=== PATIENT | male | born 1940 | race Caucasian/White ===

== ENCOUNTER 2019-03-10 16:14 | Observation (INO) | payer OTHER ==
[2019-03-10 17:07] LABS: Absolute Lymphocytes (CBC) 0.9 K/uL (0.7-4.9); Basophils % 0.7 % (0-1.3); Hematocrit 32.4 % (39.6-49.0); Lymphocytes % 12.3 % (15.3-44.8); MPV 8.4 fL (7.6-11.3)
[2019-03-10] MEDS ORDERED: CLOPIDOGREL 75 MG TABLET ONE (17:07)
[2019-03-10] MEDS ORDERED: HEPARIN 5000 UNIT/ML 1 ML VIAL ONE (17:07)
[2019-03-10] MEDS ORDERED: METOPROLOL TAR 50 MG TAB ONE (17:07)
[2019-03-10] MEDS ORDERED: ASPIRIN EC 81 MG TAB PO ONE (17:08)
[2019-03-10] MEDS ORDERED: HEPARIN/D5W 25,000 UNIT/500 ML BAG IV ONE (17:08)
[2019-03-10] MEDS ORDERED: FAMOTIDINE 20 MG/2 ML VIAL IV ONE (17:08)
[2019-03-10 17:09] LABS: Protime INR 1.05
--- NOTE | 2019-03-10 17:11 | RAD REPORT ---
EXAM DESCRIPTION: RAD - Chest Single View - 03/10/2019 5:02 pm CLINICAL HISTORY: CHEST PAIN Chest pain. COMPARISON: Ribs Bilateral dated 01/02/2019 FINDINGS: Portable technique limits examination quality. The lungs are grossly clear. The heart is mildly prominent size. No displaced fractures.
--- NOTE | 2019-03-10 17:19 | ER ---
Nurse's Notes [facility] Name: Shiraz Kruger Age: 78 yrs Sex: Male : 1940 Arrival Date: 03/10/2019 Time: 16:18 Bed 2 Private MD: Diagnosis: Chest pain, unspecified;Angina pectoris;Type 1 diabetes mellitus;Essential (primary) hypertension;Unspecified kidney failure-insufficency Presentation: 03/10 16:18 Presenting complaint: Patient states: about an hour ago i started having chest pain and tw2 shortness of breath i was just getting dressed, it is coming and going. Pt reports recent diagnoses of Prostate cancer and is currently on "hormone treatment" before starting radiation treatments. 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 Transition of care: patient was not received from another setting of care. Onset of symptoms was March 10, 2019. Risk Assessment: Do you want to hurt yourself or someone else? Patient reports no desire to harm self or others. Initial Sepsis Screen: Does the patient meet any 2 criteria? No. Patient's initial sepsis screen is negative. Does the patient have a suspected source of infection? No. Patient's initial sepsis screen is negative. Care prior to arrival: None. 16:18 Method Of Arrival: Wheelchair tw2 16:18 Acuity: MALIK 3 tw2 Triage Assessment: 16:19 General: Appears uncomfortable, obese, well groomed, Behavior is calm, cooperative, tw2 appropriate for age. Pain: Complains of pain in chest. Cardiovascular: Reports chest pain, shortness of breath. 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 - Coronavirus screen:: The patient has NOT traveled to [place], [place], or [place] in the past 14 days. - Social history:: Smoking status: Patient denies any tobacco usage or history of. - Family history:: not pertinent. - Ebola Screening: : Patient denies travel to an Ebola-affected area in the 21 days before illness onset. Screenin:31 Abuse screen: Denies threats or abuse. Nutritional screening: No deficits noted. aa5 Tuberculosis screening: No symptoms or risk factors identified. Fall Risk None identified. Assessment: 16:21 General: Appears uncomfortable, Behavior is calm, cooperative. Pain: Complains of pain aa5 in mid-sternal area Pain radiates to left arm Pain currently is 6 out of 10 on a pain scale. Quality of pain is described as sharp, Pain began suddenly, Is continuous. Neuro: Level of Consciousness is awake, alert, obeys commands, Oriented to person, place, time, situation. Cardiovascular: Heart tones S1 S2 present Edema is 3+ to bilateral lower extremities Rhythm is regular. Respiratory: Reports shortness of breath at rest Airway is patent Respiratory effort is even, unlabored, Respiratory pattern is regular, symmetrical, Breath sounds are clear bilaterally. GI: Abdomen is round non-distended, Bowel sounds present X 4 quads. Abd is soft and non tender X 4 quads. : No signs and/or symptoms were reported regarding the genitourinary system. EENT: No signs and/or symptoms were reported regarding the EENT system. Derm: Skin is pink, warm \\T\\ dry. Musculoskeletal: Range of motion: intact in all extremities. 17:40 Reassessment: Patient is alert, oriented x 3, equal unlabored respirations, skin aa5 warm/dry/pink. Patient denies pain at this time. Patient states feeling better. Dr. Feritas (Hospitalist) at bedside. Reports mild SOB. . 17:45 Reassessment: Awaiting room assignment, pt notified of wait time. . aa5 18:18 Reassessment: Patient appears in no apparent distress at this time. Patient and/or em family updated on plan of care and expected duration. Pain level reassessed. Patient is alert, oriented x 3, equal unlabored respirations, skin warm/dry/pink. 19:15 Reassessment: Patient appears in no apparent distress at this time. Patient and/or jb4 family updated on plan of care and expected duration. Pain level reassessed. Patient is alert, oriented x 3, equal unlabored respirations, skin warm/dry/pink. 20:30 Reassessment: Patient appears in no apparent distress at this time. Patient and/or jb4 family updated on plan of care and expected duration. Pain level reassessed. Patient is alert, oriented x 3, equal unlabored respirations, skin warm/dry/pink. 21:30 Reassessment: Patient appears in no apparent distress at this time. Patient and/or jb4 family updated on plan of care and expected duration. Pain level reassessed. Patient is alert, oriented x 3, equal unlabored respirations, skin warm/dry/pink. 22:30 Reassessment: Patient appears in no apparent distress at this time. Patient and/or jb4 family updated on plan of care and expected duration. Pain level reassessed. Patient is alert, oriented x 3, equal unlabored respirations, skin warm/dry/pink. 23:30 Reassessment: Patient appears in no apparent distress at this time. Patient and/or jb4 family updated on plan of care and expected duration. Pain level reassessed. Patient is alert, oriented x 3, equal unlabored respirations, skin warm/dry/pink. 23:50 Reassessment: Report given to Cindy KIM. ea Vital Signs: 16:19 BP 178 / 65; Pulse 81; Resp 18; Temp 98.5(TE); Pulse Ox 97% on R/A; Weight 120.2 kg tw2 (R); Height 5 ft. 10 in. (177.80 cm); Pain 10/10; 16:32 Temp 98.2(O); aa5 17:00 BP 142 / 61; Pulse 71; Resp 18; Pulse Ox 97% on R/A; em 18:16 BP 153 / 57; Pulse 60; Resp 18; Pulse Ox 98% on R/A; Pain 0/10; em 19:15 BP 153 / 97; Pulse 94; Resp 14; Pulse Ox 100% on R/A; jb4 20:30 BP 141 / 72; Pulse 51; Resp 16; Pulse Ox 99% on R/A; jb4 21:30 BP 107 / 85; Pulse 55; Resp 16; Pulse Ox 97% on R/A; jb4 22:30 BP 158 / 71; Pulse 57; Resp 16; Pulse Ox 97% on R/A; jb4 23:30 BP 134 / 60; Pulse 52; Resp 16; Pulse Ox 98% on R/A; jb4 16:19 Body Mass Index 38.02 (120.20 kg, 177.80 cm) tw2 ED Course: 16:18 Patient arrived in ED. mr 16:19 Triage completed. tw2 16:19 Arm band placed on. tw2 16:21 Patient has correct armband on for positive identification. Placed in gown. Bed in low aa5 position. Call light in reach. Side rails up X2. campus monitor on. Pulse ox on. NIBP on. 16:23 Patient maintains SpO2 saturation greater than 95% on room air. tw2 16:27 George Morales MD is Attending Physician. [facility] 16:28 Joie Martini, JUDY is Primary Nurse. aa5 16:35 Initial lab(s) drawn, by nv, sent to lab. Inserted saline lock: 20 gauge in right em antecubital area, using aseptic technique. Blood collected. 17:03 XRAY Chest (1 view) In Process Unspecified. EDLA 17:16 Mario Freitas DO is Hospitalizing Provider. [facility] 17:19 Warm blanket given. [facility] 17:30 Urine collected: clean catch specimen, clear. [facility] 19:18 Report given to JUDY Sales and JUDY George. aa5 23:53 No provider procedures requiring assistance completed. Patient admitted, IV remains in jb4 place. Administered Medications: 17:15 Drug: PlaVIX 300 mg Route: PO; bp 18:30 Follow up: Response: No adverse reaction aa5 17:15 Drug: Pepcid 20 mg Route: IVP; Site: right antecubital; bp 17:25 Follow up: Response: No adverse reaction aa5 17:15 Drug: Lopressor (metoprolol TARTRATE) 50 mg Route: PO; bp 18:30 Follow up: Response: No adverse reaction aa5 17:15 Drug: Heparin ([place]-Bolus No thrombolytic) - HEParin 60 units/kg {Co-Signature: em (Cristian Garcia RN).} Route: IVP; Site: right antecubital; 17:30 Follow up: Response: No adverse reaction aa5 17:15 Drug: Aspirin 81 mg Route: PO; bp 18:31 Follow up: Response: No adverse reaction aa5 17:16 Drug: Heparin ([place] Drip) 12 units/kg/hr - (HEParin 72801 units, D5W 500 ml) bp {Co-Signature: em (Cristian Garcia RN).} Route: IV; Rate: calculated rate; Site: right antecubital; 17:30 Follow up: Response: No adverse reaction aa5 23:53 Follow up: Response: No adverse reaction; IV Status: Infusion continued upon admission jb4 Output: 18:18 Urine: 600ml (Voided); Total: 600ml. em 23:30 Urine: 1300ml (Voided); Total: 1900ml. jb4 Outcome: 17:17 Decision to Hospitalize by Provider. [facility] 23:53 Admitted to Tele accompanied by tech, via wheelchair, room 421, with chart, Report jb4 called to Judy East 23:53 Condition: stable 23:53 Discharge instructions given to patient, Instructed on the need for admit, Demonstrated understanding of instructions. 23:54 Patient left the ED. jb4 Signatures: Dispatcher [employer] George Almaraz MD MD cha Rivera, Mary mr Munoz, Edgar, RN RN em Calderon, Audri, RN RN aa5 Wise, Tara, RN RN tw2 Gus Deras RN RN Jolanta Gan Elena, RN RN ea Peltier, Brian, JUDY RN bp Cristian Garcia RN em Corrections: (The following items were deleted from the chart) 16:20 16:18 Presenting complaint: Patient states: about an hour ago i started having chest tw2 pain and shortness of breath tw2 16:29 16:23 Social history: Smoking status: tw2 aa5 16:31 16:18 Presenting complaint: Patient states: about an hour ago i started having chest aa5 pain and shortness of breath i was just getting dressed, it is coming and going tw2 16:33 16:18 Presenting complaint: Patient states: about an hour ago i started having chest aa5 pain and shortness of breath i was just getting dressed, it is coming and going. Pt reports recent diagnoses of Prostate cancer and is currently on "hormone treatment" before starting radiation treatments. aa5 17:45 16:21 Cardiovascular: Heart tones S1 S2 present Rhythm is regular aa5 aa5
--- NOTE | 2019-03-10 17:19 | EDPHYS ---
Physician Documentation [facility] Name: Shiraz Kruger Age: 78 yrs Sex: Male : 1940 Arrival Date: 03/10/2019 Time: 16:18 Bed 2 Private MD: ED Physician George Morales HPI: 03/10 16:54 This 78 yrs old Male presents to ER via Wheelchair with complaints of Chest ritu Pain. 16:54 The patient or guardian reports chest pain that is located primarily in the substernal ritu area. Onset: today. The pain radiates to both arms. Associated signs and symptoms: Pertinent positives: dizziness, shortness of breath. The chest pain is described as a heaviness, a pressure. Duration: The patient or guardian reports multiple episodes, with no pattern. Modifying factors: The symptoms are alleviated by nothing. the symptoms are aggravated by nothing. Severity of pain: At its worst the pain was moderate in the emergency department the pain has improved markedly. 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 - Coronavirus screen:: The patient has NOT traveled to [place], [place], or [place] in the past 14 days. - Social history:: Smoking status: Patient denies any tobacco usage or history of. - Family history:: not pertinent. - Ebola Screening: : Patient denies travel to an Ebola-affected area in the 21 days before illness onset. ROS: 16:54 Constitutional: Negative for fever, chills, and weight loss, Eyes: Negative for injury, ritu pain, redness, and discharge, ENT: Negative for injury, pain, and discharge, Neck: Negative for injury, pain, and swelling, Respiratory: Negative for shortness of breath, cough, wheezing, and pleuritic chest pain, Abdomen/GI: Negative for abdominal pain, nausea, vomiting, diarrhea, and constipation, Back: Negative for injury and pain, : Negative for injury, bleeding, discharge, and swelling, MS/Extremity: Negative for injury and deformity, Skin: Negative for injury, rash, and discoloration, Neuro: Negative for headache, weakness, numbness, tingling, and seizure, Psych: Negative for depression, anxiety, suicide ideation, homicidal ideation, and hallucinations, Allergy/Immunology: Negative for hives, rash, and allergies, Endocrine: Negative for neck swelling, polydipsia, polyuria, polyphagia, and marked weight changes, Hematologic/Lymphatic: Negative for swollen nodes, abnormal bleeding, and unusual bruising. 16:54 Cardiovascular: Positive for chest pain, palpitations. 16:54 Respiratory: Positive for cough. Exam: 16:55 Constitutional: This is a well developed, well nourished patient who is awake, alert, ritu and in no acute distress. Head/Face: Normocephalic, atraumatic. Eyes: Pupils equal round and reactive to light, extra-ocular motions intact. Lids and lashes normal. Conjunctiva and sclera are non-icteric and not injected. Cornea within normal limits. Periorbital areas with no swelling, redness, or edema. ENT: Nares patent. No nasal discharge, no septal abnormalities noted. Tympanic membranes are normal and external auditory canals are clear. Oropharynx with no redness, swelling, or masses, exudates, or evidence of obstruction, uvula midline. Mucous membranes moist. Neck: Trachea midline, no thyromegaly or masses palpated, and no cervical lymphadenopathy. Supple, full range of motion without nuchal rigidity, or vertebral point tenderness. No Meningismus. Chest/axilla: Normal chest wall appearance and motion. Nontender with no deformity. No lesions are appreciated. Cardiovascular: Regular rate and rhythm with a normal S1 and S2. No gallops, murmurs, or rubs. Normal PMI, no JVD. No pulse deficits. Respiratory: Lungs have equal breath sounds bilaterally, clear to auscultation and percussion. No rales, rhonchi or wheezes noted. No increased work of breathing, no retractions or nasal flaring. Abdomen/GI: Soft, non-tender, with normal bowel sounds. No distension or tympany. No guarding or rebound. No evidence of tenderness throughout. Back: No spinal tenderness. No costovertebral tenderness. Full range of motion. Male : Normal genitalia with no discharge or lesions. Skin: Warm, dry with normal turgor. Normal color with no rashes, no lesions, and no evidence of cellulitis. MS/ Extremity: Pulses equal, no cyanosis. Neurovascular intact. Full, normal range of motion. Neuro: Awake and alert, GCS 15, oriented to person, place, time, and situation. Cranial nerves II-XII grossly intact. Motor strength 5/5 in all extremities. Sensory grossly intact. Cerebellar exam normal. Normal gait. Psych: Awake, alert, with orientation to person, place and time. Behavior, mood, and affect are within normal limits. Vital Signs: 16:19 BP 178 / 65; Pulse 81; Resp 18; Temp 98.5(TE); Pulse Ox 97% on R/A; Weight 120.2 kg tw2 (R); Height 5 ft. 10 in. (177.80 cm); Pain 10/10; 16:32 Temp 98.2(O); aa5 17:00 BP 142 / 61; Pulse 71; Resp 18; Pulse Ox 97% on R/A; em 18:16 BP 153 / 57; Pulse 60; Resp 18; Pulse Ox 98% on R/A; Pain 0/10; em 19:15 BP 153 / 97; Pulse 94; Resp 14; Pulse Ox 100% on R/A; jb4 20:30 BP 141 / 72; Pulse 51; Resp 16; Pulse Ox 99% on R/A; jb4 21:30 BP 107 / 85; Pulse 55; Resp 16; Pulse Ox 97% on R/A; jb4 22:30 BP 158 / 71; Pulse 57; Resp 16; Pulse Ox 97% on R/A; jb4 23:30 BP 134 / 60; Pulse 52; Resp 16; Pulse Ox 98% on R/A; jb4 16:19 Body Mass Index 38.02 (120.20 kg, 177.80 cm) tw2 MDM: 16:27 Patient medically screened. [facility] 16:56 Data reviewed: vital signs, nurses notes, lab test result(s), EKG, radiologic studies, ritu plain films. 03/10 16: Order name: Basic Metabolic Panel; Complete Time: 17:45 [facility] 03/10 16:27 Order name: CBC with Diff; Complete Time: 17:13 [facility] 03/10 16:27 Order name: LFT's; Complete Time: 17:45 [facility] 03/10 16:27 Order name: Magnesium; Complete Time: 17:45 [facility] 03/10 16:27 Order name: NT PRO-BNP; Complete Time: 17:45 [facility] 03/10 16:27 Order name: PT-INR; Complete Time: 17:13 [facility] 03/10 16:27 Order name: Troponin (emerg Dept Use Only); Complete Time: 17:45 [facility] 03/10 16:27 Order name: XRAY Chest (1 view); Complete Time: 17:13 [facility] 03/10 16:27 Order name: Lipase; Complete Time: 17:45 [facility] 03/10 17:36 Order name: Urine Dipstick--Ancillary (enter results) 03/10 22:13 Order name: Glucose, Ancillary Testing [facility] 03/10 22:39 Order name: US [facility] 03/10 16:27 Order name: EKG; Complete Time: 16:28 [facility] 03/10 16:27 Order name: Cardiac monitoring; Complete Time: 16:32 [facility] 03/10 16:27 Order name: EKG - Nurse/Tech; Complete Time: 16:32 [facility] 03/10 16:27 Order name: IV Saline Lock; Complete Time: 16:32 [facility] 03/10 16:27 Order name: Labs collected and sent; Complete Time: 16:32 [facility] 03/10 16:27 Order name: O2 Per Protocol; Complete Time: 16:32 [facility] 03/10 16:27 Order name: O2 Sat Monitoring; Complete Time: 16:32 [facility] 03/10 16:27 Order name: Urine Dipstick-Ancillary (obtain specimen); Complete Time: 17:30 [facility] 03/10 17:36 Order name: Urine Dipstick-Ancillary (obtain specimen); Complete Time: 17:36 ritu Administered Medications: 17:15 Drug: PlaVIX 300 mg Route: PO; bp 18:30 Follow up: Response: No adverse reaction aa5 17:15 Drug: Pepcid 20 mg Route: IVP; Site: right antecubital; bp 17:25 Follow up: Response: No adverse reaction aa5 17:15 Drug: Lopressor (metoprolol TARTRATE) 50 mg Route: PO; bp 18:30 Follow up: Response: No adverse reaction aa5 17:15 Drug: Heparin ([place]-Bolus No thrombolytic) - HEParin 60 units/kg {Co-Signature: em (Cristian Garcia RN).} Route: IVP; Site: right antecubital; 17:30 Follow up: Response: No adverse reaction aa5 17:15 Drug: Aspirin 81 mg Route: PO; bp 18:31 Follow up: Response: No adverse reaction aa5 17:16 Drug: Heparin ([place] Drip) 12 units/kg/hr - (HEParin 87577 units, D5W 500 ml) bp {Co-Signature: em (Cristian Garcia RN).} Route: IV; Rate: calculated rate; Site: right antecubital; 17:30 Follow up: Response: No adverse reaction aa5 23:53 Follow up: Response: No adverse reaction; IV Status: Infusion continued upon admission jb4 Disposition: 03/10/19 17:17 Hospitalization ordered by Mario Freitas for Inpatient Admission. Preliminary diagnosis are Chest pain, unspecified, Angina pectoris, Type 1 diabetes mellitus, Essential (primary) hypertension, Unspecified kidney failure - insufficency. - Bed requested for Telemetry/MedSurg (Inpatient). - Status is Inpatient Admission. jb4 - Condition is Fair. - Problem is new. - Symptoms have improved. UTI on Admission? No Signatures: Dispatcher [employer] George Almaraz MD MD cha Calderon, Audri, RN RN aa5 rGacy Lunsford, RN RN Catalina Oro RN RN tw2 Gus Deras RN RN jb4 Wilber Oreilly RN RN Cristian Garcia RN Corrections: (The following items were deleted from the chart) 16:29 16:23 Social history: Smoking status: tw2 [facility] 17:46 17:17 Hospitalization Ordered by Mario Freitas DO for Inpatient Admission. Preliminary ritu diagnosis is Chest pain, unspecified; Angina pectoris; Type 1 diabetes mellitus; Essential (primary) hypertension. Bed requested for Telemetry/MedSurg (Inpatient). Status is Inpatient Admission. Condition is Fair. Problem is new. Symptoms have improved. UTI on Admission? No. ritu 19:42 17:46 03/10/2019 17:17 Hospitalization Ordered by Mario Freitas DO for Inpatient cg Admission. Preliminary diagnosis is Chest pain, unspecified; Angina pectoris; Type 1 diabetes mellitus; Essential (primary) hypertension; Unspecified kidney failure - insufficency. Bed requested for Telemetry/MedSurg (Inpatient). Status is Inpatient Admission. Condition is Fair. Problem is new. Symptoms have improved. UTI on Admission? No. ritu 21:33 19:42 03/10/2019 17:17 Hospitalization Ordered by Mario Freitas DO for Inpatient cg Admission. Preliminary diagnosis is Chest pain, unspecified; Angina pectoris; Type 1 diabetes mellitus; Essential (primary) hypertension; Unspecified kidney failure - insufficency. Bed requested [facility] ER HOLD. Status is Inpatient Admission. Condition is Fair. Problem is new. Symptoms have improved. UTI on Admission? No. cg 22:31 21:33 03/10/2019 17:17 Hospitalization Ordered by Mario Freitas DO for Inpatient cg Admission. Preliminary diagnosis is Chest pain, unspecified; Angina pectoris; Type 1 diabetes mellitus; Essential (primary) hypertension; Unspecified kidney failure - insufficency. Bed requested for Telemetry/MedSurg (Inpatient). Status is Inpatient Admission. Condition is Fair. Problem is new. Symptoms have improved. UTI on Admission? No. cg 23:54 22:31 03/10/2019 17:17 Hospitalization Ordered by Mario Freitas DO for Inpatient jb4 Admission. Preliminary diagnosis is Chest pain, unspecified; Angina pectoris; Type 1 diabetes mellitus; Essential (primary) hypertension; Unspecified kidney failure - insufficency. Bed requested for Telemetry/MedSurg (Inpatient). Status is Inpatient Admission. Condition is Fair. Problem is new. Symptoms have improved. UTI on Admission? No. cg
[2019-03-10 17:31] LABS: ALT/SGPT 20 U/L (12-78); AST/SGOT 12 U/L (15-37); Albumin 3.6 g/dL (3.4-5.0); Alkaline Phosphatase 52 U/L (45-117); BUN Blood Urea Nitrogen 29 mg/dL (7-18); Bicarbonate 27 mmol/L (21-32); Bilirubin Direct 0.1 mg/dL (0-0.2); Bilirubin Total 0.3 mg/dL (0.2-1.0); Glucose Level 277 mg/dL (74-106); Lipase 165 U/L (73-393); Magnesium 2.3 mg/dL (1.8-2.4); NT PRO-BNP 113 pg/mL (<450); Potassium 4.1 mmol/L (3.5-5.1); Protein, Total 7.4 g/dL (6.4-8.2); Sodium Level 140 mmol/L (136-145); Troponin (Emerg Dept Use Only) < 0.02 ng/mL (0.0-0.045)
--- NOTE | 2019-03-10 18:01 | P.HP ---
Certification for Inpatient Patient admitted to: Observation With expected LOS: <2 Midnights Patient will require the following post-hospital care: None Practitioner: I am a practitioner with admitting privileges, knowledge of patient current condition, hospital course, and medical plan of care. Services: Services provided to patient in accordance with Admission requirements found in Title 42 Section 412.3 of the Code of Federal Regulations Patient History Date of Service: 03/10/19 Primary Care Provider: [facility]; Oncology-Dr. Santamaria; Urology-Dr. Fuentes Reason for admission: Chest pain History of Present Illness: 78-year-old male with history of diabetes mellitus type 2 insulin dependent, hypertension, gout, and prostate cancer. Patient has reported chest pain over the past several days. Chest pain has gotten worse. He reports the chest pain as being substernal. It radiates to the left arm. It is worth with exertion. He does report some shortness of breath with this. He denies any nausea, vomiting, palpitations. Patient takes medications for diabetes and hypertension. His Norvasc was recently increased to 10 mg. He was also treated for right lower extremity cellulitis. He has edema to the lower extremities. He has 3 pillow orthopnea. He came to the ER due to worsening chest pain and shortness of breath. In the ER patient was evaluated. Hemoglobin 10.7, white count 7.5. Sodium 140 , potassium 4.1, BUN of 29, creatinine 1.52 with a GFR 45. Glucose 277. Troponin unremarkable. BNP 113. No significant EKG changes noted. Patient was admitted for further evaluation. When I saw the patient ER, he appeared comfortable. He was without any significant chest pain. Family at bedside. He has reported increasing edema to the lower extremity. He is seen by oncology for prostate cancer. He recently started a new medication. Home medications list reviewed: Yes - Past Medical/Surgical History Diabetic: Yes -: Diabetes mellitus type 2, insulin-dependent -: Hypertension -: Prostate cancer -: History of tobacco abuse -: Cataract surgery Psychosocial/ Personal History: Patient lives at home. - Family History Family History: Reviewed- Non-Contributory - Social History Smoking Status: Former smoker Alcohol use: No CD- Drugs: No Caffeine use: No Place of Residence: Home Review of Systems General: As per HPI Eyes: Unremarkable ENT: Unremarkable Respiratory: Shortness of Breath, SOB with Excertion, As per HPI Cardiovascular: Chest Pain, Paroxysmal Noc. Dyspnea, Edema, As per HPI Gastrointestinal: Unremarkable Genitourinary: Unremarkable Musculoskeletal: Pedal edema, As per HPI Integumentary: Unremarkable Neurological: Unremarkable Lymphatics: Unremarkable Physical Examination - Physical Exam General: Alert, In no apparent distress, Oriented x3, Cooperative HEENT: Atraumatic, Normocephalic, Mucous membr. moist/pink Neck: Supple Respiratory: Crackles/rales (Crackles to the bases) Cardiovascular: Normal pulses, Regular rate/rhythm Gastrointestinal: Normal bowel sounds, Soft and benign, Non-distended, No tenderness, No masses, No rebound, No guarding Musculoskeletal: Other (Edema to the lower extremities bilateral.) Integumentary: No erythema, No warmth, No cyanosis Neurological: Normal speech, Normal strength at 5/5 x4 extr, Normal tone, Normal affect - Studies Laboratory Data (last 24 hrs) 03/10/19 16:35: PT 12.4, INR 1.05 03/10/19 16:35: WBC 7.5, Hgb 10.7 L, Hct 32.4 L, Plt Count 229 03/10/19 16:35: Sodium 140, Potassium 4.1, BUN 29 H, Creatinine 1.52 H, Glucose 277 H, Magnesium 2.3, Total Bilirubin 0.3, AST 12 L, ALT 20, Alkaline Phosphatase 52, Lipase 165 Assessment and Plan - Plan Impression: Chest pain, shortness of breath suspect acute on chronic diastolic CHF Diabetes mellitus type 2 insulin-dependent with hyperglycemia Hypertension Edema to the lower extremities likely from CHF Anemia of chronic disease Prostate cancer on chemotherapy Gout Suspect obstructive sleep apnea Plan: Chest pain, shortness of breath suspect acute on chronic diastolic CHF: Patient be admitted for further evaluation and treatment. Will continue to monitor telemetry and cardiac enzymes. Will start IV Lasix 40 mg twice daily. Suspect diastolic CHF. Will place on a 1500 cc per day fluid restriction. Will obtain echocardiogram to further evaluate. Cardiology consulted for further evaluation. Will discontinue hydrochlorothiazide and amlodipine at this time. Will keep the patient NPO after midnight in the event cardiology wants to further evaluate patient. Further adjustment in medication may be required. Anticipate discharge in the next 24-48 hr with clinical improvement. Diabetes mellitus type 2 insulin-dependent with hyperglycemia: Will check A1c. Will continue with basal insulin therapy. Will provide sliding scale and monitor Accu-Cheks. Hypertension: Will discontinue amlodipine and hydrochlorothiazide. Patient now on Lasix IV. Will continue with losartan. Edema to the lower extremities likely from CHF: Continue with above. Await echo. Await further recommendations from cardiology. Anemia of chronic disease: Will check iron and B12 studies per will monitor hemoglobin closely. Prostate cancer on chemotherapy: Will confirm chemotherapy medications. Will evaluate for possible side affects. Gout: Continue with allopurinol. Suspect obstructive sleep apnea: Will recommend sleep study to be done as an outpatient. Discharge Plan: Home Plan to discharge in: 24 Hours - Advance Directives Does patient have a Living Will: No Does patient have a Durable POA for Healthcare: No - Code Status/Comfort Care Code Status Assessed: Yes (Patient is full code) Time Spent Managing Pts Care (In Minutes): 55
[2019-03-10 20:15] LABS: Urine Blood TRACE (NEG); Urine Glucose 1+ (NEG); Urine Protein NEGATIVE (NEG); Urine Specific Gravity 1.015 (1.005-1.030)
[2019-03-10] MEDS ORDERED: GLUCAGON 1 MG/VIAL IM PRN (21:07)
[2019-03-10] MEDS ORDERED: ACETAMINOPHEN 500 MG TAB PO PRN (21:07)
[2019-03-10] MEDS ORDERED: ONDANSETRON 4 MG/2 ML VIAL IV PRN (21:07)
[2019-03-10] MEDS ORDERED: D50W 25 GM/50 ML SYRINGE/VIAL IV PRN (21:07)
[2019-03-10] MEDS: FUROSEMIDE 40 MG/4 ML VIAL IV SCH ×2 (21:07→22:00)
[2019-03-10] MEDS: INSULIN -REGULAR HUMAN 50 UNIT/0.5 ML ML SQ SCH (21:30)
[2019-03-10] MEDS ORDERED: FUROSEMIDE 40 MG/4 ML VIAL ONE (21:33)
[2019-03-10] MEDS ORDERED: INSULIN GLARGINE 100 UNITS/ML SQ SCH (22:00)
--- NOTE | 2019-03-10 22:36 | RAD REPORT ---
EXAM DESCRIPTION: US - Renal Ultrasound-Complete - 03/10/2019 9:35 pm CLINICAL HISTORY: evaluate for acute on chronic renal disease COMPARISON: No comparisons FINDINGS: Both kidneys are normal in size, shape and echotexture. The right kidney measures 10.1 x 5.4 x 4.5 cm. No hydronephrosis, focal mass or perinephric fluid. The left kidney measures 11.3 x 5.2 x 4.3 cm. No hydronephrosis, focal mass or perinephric fluid. The urinary bladder is incompletely distended without gross abnormality seen. The prostate gland appe ars prominent and projects into the bladder base. IMPRESSION: Unremarkable renal sonogram.
[2019-03-11] MEDS ORDERED: HEPARIN/D5W 25,000 UNIT/500 ML BAG IV SCH (01:00)
[2019-03-11 01:15] LABS: CKMB Creatine Kinase MB 1.1 ng/mL (0.3-3.6); Troponin I 0.04 ng/mL (0.0-0.045)
[2019-03-11 02:21] VITALS: BMI 38.0
[2019-03-11 04:57] LABS: Absolute Lymphocytes (CBC) 1.1 K/uL (0.7-4.9); Basophils % 0.7 % (0-1.3); Hematocrit 29.2 % (39.6-49.0); Lymphocytes % 13.2 % (15.3-44.8); MPV 8.4 fL (7.6-11.3); RBC Red Blood Cell Count 3.26 M/uL (4.33-5.43)
[2019-03-11 05:42] LABS: CKMB Creatine Kinase MB 1.5 ng/mL (0.3-3.6); Ferritin 152.3 ng/mL (26-388); Magnesium 2.2 mg/dL (1.8-2.4); Potassium 4.3 mmol/L (3.5-5.1); Thyroid Stimulating Hormone 1.41 uIU/mL (0.360-3.740); Troponin I 0.04 ng/mL (0.0-0.045)
[2019-03-11] MEDS ORDERED: PANTOPRAZOLE 40MG TABLET PO SCH ×2 (06:30→13:00)
[2019-03-11] MEDS: INSULIN -REGULAR HUMAN 50 UNIT/0.5 ML ML SQ SCH ×2 (07:30→11:30)
[2019-03-11] MEDS ORDERED: PNEUMOCOCCAL VACCINE 0.5 ML IMVAC ONE (08:00)
[2019-03-11] MEDS ORDERED: BICALUTAMIDE PO SCH (09:00)
[2019-03-11] MEDS ORDERED: allopurinoL 100 MG TAB PO SCH (09:00)
[2019-03-11] MEDS ORDERED: CETIRIZINE HCL 5 MG TABLET PO SCH (09:00)
[2019-03-11] MEDS ORDERED: AMOXICILLIN PO SCH (09:00)
[2019-03-11] MEDS ORDERED: ENOXAPARIN 40 MG/0.4 ML SQ SCH (09:00)
[2019-03-11] MEDS ORDERED: LOSARTAN POTASSIUM 50 MG TABLET PO SCH (09:00)
[2019-03-11] MEDS ORDERED: ASPIRIN EC 81 MG TAB PO SCH (09:00)
[2019-03-11] MEDS ORDERED: FERROUS SULFATE 325 MG TAB PO SCH (09:00)
--- NOTE | 2019-03-11 09:23 | RAD REPORT ---
EXAM DESCRIPTION: RAD - Chest Pa And Lat (2 Views) - 03/11/2019 5:37 am CLINICAL HISTORY: Follow up possible CHF Chest pain. COMPARISON: Chest Single View dated 03/10/2019 FINDINGS: Little overall change is seen in the appearance of the chest since prior study. Mild inter stitial pulmonary edema suspected. The heart is mildly enlarged in size. No displaced fractures. IMPRESSION: Stable chest since 03/10/2019.
[2019-03-11] MEDS: FUROSEMIDE 40 MG/4 ML VIAL IV SCH (09:27)
[2019-03-11 12:34] VITALS: BP 134/61; TEMP 97.2
--- NOTE | 2019-03-11 12:54 | ECHO ---
HEIGHT: 5 ft 10 in WEIGHT: 264 lb 15.93 oz DATE OF STUDY: 03/11/[address]: Mario Freitas DO 2-DIMENSIONAL: YES M.MODE: YES DOPPLER: YES COLOR FLOW: YES TDS: YES PORTABLE: NO DEFINITY: NO BUBBLE STUDY: NO DIAGNOSIS: CHEST PAIN, SHORTNESS OF BREATH, SUSPECT CONGESTIVE HEART FAILURE CARDIAC HISTORY: CATHERIZATION: NO SURGERY: NO PROSTHETIC VALVE: NO PACEMAKER: NO MEASUREMENTS (cm) DIASTOLIC (NORMALS) SYSTOLIC (NORMALS) IVSd 0.9 (0.6-1.2) LA Diam 4.3 (1.9-4.0) LVEF 36% LVIDd 4.6 (3.5-5.7) LVIDs 3.8 (2.0-3.5) %FS 17% LVPWd 1.0 (0.6-1.2) Ao Diam 2.8 (2.0-3.7) 2 DIMENSIONAL ASSESSMENT: RIGHT ATRIUM: NORMAL LEFT ATRIUM: NORMAL RIGHT VENTRICLE: NORMAL LEFT VENTRICLE: NORMAL TRICUSPID VALVE: NORMAL MITRAL VALVE: MITRAL ANNULAR CALCIFICATION PULMONIC VALVE: NORMAL AORTIC VALVE: SCLEROSIS PERICARDIAL EFFUSION: NONE AORTIC ROOT: NORMAL LEFT VENTRICULAR WALL MOTION: NORMAL DOPPLER/COLOR FLOW: NORMAL COMMENTS: LEFT ATRIAL ENLARGEMENT. NORMAL LEFT VENTRICULAR SIZE. DECREASED LEFT VENTRICULAR COMPLIANCE. MITRAL ANNULAR CALCIFICATION. AORTIC SCLEROSIS WITH NO STENOSIS. TECHNOLOGIST: Emi WARNER
--- NOTE | 2019-03-11 13:29 | P.DS ---
Admission Date: 03/10/19 Discharge Date: 03/11/19 Primary Care Provider: [facility] Physician; Oncology-Dr. Santamaria; Urology-Dr. Fuentes Disposition: ROUTINE DISCHARGE Discharge Condition: GOOD Reason for Admission: Chest pain Consultations: Cardiology-Dr. Carmichael Procedures: CXR: COMPARISON: Chest Single View dated 03/10/2019 FINDINGS: Little overall change is seen in the appearance of the chest since prior study. Mild interstitial pulmonary edema suspected. The heart is mildly enlarged in size. No displaced fractures. IMPRESSION: Stable chest since 03/10/2019. ECHO: Ejection fraction 36% LEFT VENTRICULAR WALL MOTION: NORMAL DOPPLER/COLOR FLOW: NORMAL COMMENTS: LEFT ATRIAL ENLARGEMENT. NORMAL LEFT VENTRICULAR SIZE. DECREASED LEFT VENTRICULAR COMPLIANCE. MITRAL ANNULAR CALCIFICATION. AORTIC SCLEROSIS WITH NO STENOSIS. Medical Problem List: Chest pain, shortness of breath likely related to acute on chronic systolic CHF with ejection fraction of 36% Diabetes mellitus type 2 insulin-dependent with hyperglycemia Hypertension Edema to the lower extremities likely from CHF Anemia of chronic disease Prostate cancer on chemotherapy Gout Suspect obstructive sleep apnea Brief History of Present Illness: 78-year-old male with history of diabetes mellitus type 2 insulin dependent, hypertension, gout, and prostate cancer. Patient has reported chest pain over the past several days. Chest pain has gotten worse. He reports the chest pain as being substernal. It radiates to the left arm. It is worth with exertion. He does report some shortness of breath with this. He denies any nausea, vomiting, palpitations. Patient takes medications for diabetes and hypertension. His Norvasc was recently increased to 10 mg. He was also treated for right lower extremity cellulitis. He has edema to the lower extremities. He has 3 pillow orthopnea. He came to the ER due to worsening chest pain and shortness of breath. In the ER patient was evaluated. Hemoglobin 10.7, white count 7.5. Sodium 140 , potassium 4.1, BUN of 29, creatinine 1.52 with a GFR 45. Glucose 277. Troponin unremarkable. BNP 113. No significant EKG changes noted. Patient was admitted for further evaluation. When I saw the patient ER, he appeared comfortable. He was without any significant chest pain. Family at bedside. He has reported increasing edema to the lower extremity. He is seen by oncology for prostate cancer. He recently started a new medication. Hospital Course: Patient presented with chest pain and shortness of breath. Patient also had edema to the lower extremities. Patient was admitted for further evaluation. Cardiac enzymes unremarkable. Patient seen and evaluated by Cardiology. Echocardiogram shows ejection fraction of 36%. Shortness of breath related to acute on chronic systolic CHF. Medications have been adjusted. Hydrochlorothiazide and amlodipine have been discontinued. At discharge he will continue with a 1500 cc per day fluid restriction and low-salt diet. He will monitor his weight daily. If his weight increases by more than 5 lb then he is to contact his PCP for further recommendation. At discharge he will continue with Lasix 40 mg daily. Recommend follow up with cardiology in 1-2 weeks to follow up this hospitalization. Patient will require outpatient cardiac stress test as an outpatient. This will be done with the help of Cardiology. Education on CHF provided. Recommend to recheck lab-BMP in 1-2 weeks to monitor his progress. Patient with underlying hypertension. Medications have been adjusted due to CHF. Patient will no longer take amlodipine and hydrochlorothiazide. Patient will continue with losartan 50 mg daily. Recommend to maintain his blood pressures less 150/80. Further adjustment may be required. If blood pressure remains elevated losartan may need to be increased to twice daily. Recommend follow up with cardiology in his PCP to further address. Patient with diabetes mellitus type 2. A1c 7.4. At discharge he will continue with his insulin regimen of Levemir 50 units subcu twice daily. Patient also takes short-acting insulin. Recommend to maintain blood sugars less 140 fasting and less than 200 after meals. Further adjustment can be done by his PCP. Patient with anemia of chronic disease. Patient may continue with iron 325 mg daily. Patient with prostate cancer. Patient will continue with his chemotherapy medications. Recommend follow up with urology and oncology. Patient may have underlying obstructive sleep apnea. Will recommend sleep study to be done as an outpatient. This can be done with the help of his PCP. Patient with underlying gout. Patient may continue with allopurinol 100 mg daily. Patient may continue with his antibiotic regimen for cellulitis to the lower extremities. This has improved. Recommend follow up with his PCP to further address. Vital Signs/Physical Exam: Temp Pulse Resp BP Pulse Ox 97.2 F 56 20 134/61 95 03/11/19 12:00 03/11/19 12:00 03/11/19 12:00 03/11/19 12:00 03/11/19 12:00 General: Alert, In no apparent distress, Oriented x3, Cooperative HEENT: Atraumatic Neck: Supple Respiratory: Clear to auscultation bilaterally, Normal air movement Cardiovascular: Normal pulses, Regular rate/rhythm Gastrointestinal: Normal bowel sounds, Soft and benign, Non-distended, No tenderness, No masses, No rebound, No guarding Musculoskeletal: No tenderness, No warmth Integumentary: Tenderness/swelling (Swelling to the lower extremities improved.) Neurological: Normal speech, Normal strength at 5/5 x4 extr, Normal tone, Normal affect Laboratory Data at Discharge: WBC 8.6 K/uL (4.3-10.9) D 03/11/19 04:33 Hgb 9.8 g/dL (13.6-17.9) L 03/11/19 04:33 Hct 29.2 % (39.6-49.0) L 03/11/19 04:33 Plt Count 223 K/uL (152-406) 03/11/19 04:33 PT 12.4 SECONDS (9.5-12.5) 03/10/19 16:35 INR 1.05 03/10/19 16:35 APTT 49.6 SECONDS (24.3-36.9) H 03/11/19 00:33 Sodium 145 mmol/L (136-145) 03/11/19 04:33 Potassium 4.3 mmol/L (3.5-5.1) 03/11/19 04:33 BUN 30 mg/dL (7-18) H 03/11/19 04:33 Creatinine 1.58 mg/dL (0.55-1.3) H 03/11/19 04:33 Glucose 147 mg/dL (74-106) H 03/11/19 04:33 Magnesium 2.2 mg/dL (1.8-2.4) 03/11/19 04:33 Total Bilirubin 0.3 mg/dL (0.2-1.0) 03/10/19 16:35 AST 12 U/L (15-37) L 03/10/19 16:35 ALT 20 U/L (12-78) 03/10/19 16:35 Alkaline Phosphatase 52 U/L (45-117) 03/10/19 16:35 Troponin I 0.04 ng/mL (0.0-0.045) 03/11/19 04:33 Triglycerides 156 mg/dL (<150) H 03/11/19 04:33 Cholesterol 128 mg/dL (<200) 03/11/19 04:33 HDL Cholesterol 38 mg/dL (40-60) L 03/11/19 04:33 Cholesterol/HDL Ratio 3.37 03/11/19 04:33 Lipase 165 U/L (73-393) 03/10/19 16:35 Home Medications: Allopurinol 1 tab PO DAILY 03/11/19 Amoxicillin 1 tab PO TID 03/11/19 Aspirin Chewable [Aspirin Chewable*] 1 tab PO DAILY 03/11/19 Bicalutamide [Casodex] 1 tab PO DAILY 03/11/19 Cetirizine HCl 1 tab PO DAILY 03/11/19 Curcumin 1 tab PO DAILY 03/11/19 Ferrous Sulfate [Iron] 1 tab PO DAILY 03/11/19 Flaxseed/Omega3,6,9/Fatty Acid [Flax Seed Oil 1,300 mg Softgel] 1 tab PO DAILY 03/11/19 Furosemide [Lasix] 40 mg PO DAILY #30 tab 03/11/19 Insulin Aspart [Insulin Aspart Penfill] 20 units SQ TID 03/11/19 Insulin Detemir [Levemir] 50 units SQ BID 03/11/19 Losartan Potassium [Cozaar*] 1 tab PO DAILY 03/11/19 Sennosides/Docusate Sodium [Stool Softener-Laxative Tablet] 1 tab PO DAILY 03/11 New Medications: Furosemide [Lasix] 40 mg PO DAILY #30 tab Patient Discharge Instructions: 1. Recommend follow up with his PCP in 1-2 weeks to follow up this hospitalization. 2. Patient presented with chest pain and shortness of breath. Patient also had edema to the lower extremities. Patient was admitted for further evaluation. Cardiac enzymes unremarkable. Patient seen and evaluated by Cardiology. Echocardiogram shows ejection fraction of 36%. Shortness of breath related to acute on chronic systolic CHF. Medications have been adjusted. Hydrochlorothiazide and amlodipine have been discontinued. At discharge he will continue with a 1500 cc per day fluid restriction and low-salt diet. He will monitor his weight daily. If his weight increases by more than 5 lb then he is to contact his PCP for further recommendation. At discharge he will continue with Lasix 40 mg daily. Recommend follow up with cardiology in 1-2 weeks to follow up this hospitalization. Patient will require outpatient cardiac stress test as an outpatient. This will be done with the help of Cardiology. Education on CHF provided. Recommend to recheck lab-BMP in 1-2 weeks to monitor his progress. 3. Patient with underlying hypertension. Medications have been adjusted due to CHF. Patient will no longer take amlodipine and hydrochlorothiazide. Patient will continue with losartan 50 mg daily. Recommend to maintain his blood pressures less 150/80. Further adjustment may be required. If blood pressure remains elevated losartan may need to be increased to twice daily. Recommend follow up with cardiology in his PCP to further address. 4. Patient with diabetes mellitus type 2. A1c 7.4. At discharge he will continue with his insulin regimen of Levemir 50 units subcu twice daily. Patient also takes short-acting insulin. Recommend to maintain blood sugars less 140 fasting and less than 200 after meals. Further adjustment can be done by his PCP. 5. Patient with anemia of chronic disease. Patient may continue with iron 325 mg daily. 6. Patient with prostate cancer. Patient will continue with his chemotherapy medications. Recommend follow up with urology and oncology. 7. Patient may have underlying obstructive sleep apnea. Will recommend sleep study to be done as an outpatient. This can be done with the help of his PCP. 8. Patient with underlying gout. Patient may continue with allopurinol 100 mg daily. 9. Patient may continue with his antibiotic regimen for cellulitis to the lower extremities. This has improved. Recommend follow up with his PCP to further address. Diet: ADA Activity: Fall precautions Time spent managing pt's care (in minutes): 55
[2019-03-11 13:38] VITALS: O2SAT 93
--- NOTE | 2019-03-11 15:57 | EKG ---
Test Date: 2019-03-10 Test Time: 16:27:35 Instrument Inspector: DAVID MEASUREMENT RESULTS: Intervals: Rate: 74 MS: 216 QRSD: 100 QT: 388 QTc: 430 [place]: P: 52 MS: 216 QRS: 16 T: 62 INTERPRETIVE STATEMENTS: Sinus rhythm with 1st degree AV block Low voltage QRS Nonspecific ST abnormality Abnormal ECG Compared to ECG 11/12/1999 05:05:00 First degree AV block now present Low QRS voltage now present ST (T wave) deviation now present Electronically Signed On 03-11-19 15:52:28 [employer] by Hu Carmichael
--- NOTE | 2019-03-11 20:19 | CON ---
Date of Consultation: 03/11/2019 Reason For Consultation: Chest pain and shortness of breath. History Of Present Illness: Mr. Kruger is 78, has a history of hypertension, diabetes, asthma, and p rostate cancer. He is still undergoing therapy. He came in with shortness of breath and chest pain that has been going on for few days. His chest pain is stabbing, sharp, mid epigastric. He will occ asionally have some arm pain with it, lasts usually 5 to 10 minutes. It is nonexertional. Denied an y PND, orthopnea, pedal edema, palpitation, or syncope. He feels that he has been having more dyspne a on exertion lately. Allergies: FLOMAX. Review of Systems: Negative. Social History: Negative. Family History: Negative. Medications: At home include insulin, Norvasc, allopurinol, aspirin, hydrochlorothiazide, and losart an. Physical Examination: General: He weighed 214 pounds. HEENT: Negative. Neck: Supple. No bruit. Vital Signs: Stable, afebrile. Sinus rhythm. Chest: Revealed a few rales at the right base. The left was negative. Cardiac: Revealed a regular rhythm and rate with an S4 and gallop. No murmurs or rubs. Abdomen: Benign. Extremities: Revealed no clubbing, cyanosis, or edema. Diagnostic Data: His creatinine is 1.56, hemoglobin 9.8. EKG was unremarkable. Echocardiogram show ed normal ejection fraction with decreased left ventricular compliance. Impression And Plan: 1.Acute diastolic congestive heart failure. 2.Hypertension. 3.Diabetes. 4.Asthma. 5.Prostate cancer. 6.Gout. 7.Anemia. 8.Renal insufficiency. Patient has improved dramatically on IV Lasix. I would definitely consider sending him home today. I think the hydrochlorothiazide should be replaced with p.o. Lasix. I would continue the Norvasc or even consider using a low-dose beta-magdalena instead. He is already on losartan, which is a good michelle men. We need to watch his kidney function and anemia. I am comfortable with him going home with the above-mentioned changes. Case was discussed with Dr. Freitas. I will make arrangements for him to h ave an outpatient stress test and see me in the office in the near future. NB/MODL Voice ID: [id number] Report ID: [id number]
[2019-03-12] MEDS ORDERED: ENOXAPARIN 40 MG/0.4 ML SQ SCH (09:00)
== END 2019-03-11 14:25 | disposition home or self-care (01) ==
LOC: ER 16:14 → ERHOLD 17:46 → 4TH 23:07
PROVIDERS: ADMIT Family Medicine; ATTEND Family Medicine
DX: R07.9 Chest pain, unspecified (principal); I11.0 Hypertensive heart disease with heart failure; I50.23 Acute on chronic systolic (congestive) heart failure; C61 Malignant neoplasm of prostate; M10.9 Gout, unspecified; E11.65 Type 2 diabetes mellitus with hyperglycemia
CPT/HCPCS: 96365; 93005; 93306; 85025 ×2; 80048 ×2; 36415; 83735 ×2; 82550 ×2; 85610; 80061; 82947 ×4; 80076; 85730; 84443; 81003; 83036; 84484 ×3; 82553 ×2; 84439; 82728; 82607; 83690; 83540; 83880; 84466; 71045; 71046; 76770; 96375; 99285; 96366; J1940 ×2; J1644; J1815; G0378 ×3

== ENCOUNTER 2024-01-26 19:18 | Emergency (ER) | payer OTHER ==
[2024-01-26 20:17] LABS: Specific Gravity 1.021 (1.005-1.030); Urine Clarity Extremely Turbid (Clear); Urine Color Yellow (Yellow)
[2024-01-26 20:18] LABS: Urine Bilirubin NEGATIVE (Negative); Urine Blood 2+ (Negative); Urine Glucose Negative (Negative); Urine Ketones Negative (Negative); Urine pH 5.5 (5.0-7.0)
[2024-01-26 20:19] LABS: Urine Nitrite Negative (Negative); Urine Protein 2+ (Negative); Urine Urobilinogen Normal mg/dL (0.2-1.0)
[2024-01-26 20:20] LABS: Sqamous Epithelial <5 /HPF (None Seen); Urine Ascorbic Acid Negative (Negative); Urine Bacteria None Seen /HPF (<20); Urine Culture Reflex Order REFLEXED; Urine Microscopic Reflex YN ORDER UMIC; Urine RBC >50 /HPF (None Seen); Urine WBC >50 /HPF (<5)
[2024-01-26 20:21] LABS: Urine Crystals Unidentified Few /HPF (None Seen); Urine WBC Clump Few /HPF (None Seen); Urine Yeast (Budding) Few /HPF (None Seen)
--- NOTE | 2024-01-26 20:56 | RAD REPORT ---
EXAMINATION: CT ABDOMEN AND PELVIS WITHOUT CONTRAST CLINICAL INDICATION: FLANK PAIN TECHNIQUE: CT abdomen and pelvis was performed, without IV contrast, as per department protocol. Axia l, sagittal and coronal reconstructions were obtained. One or more of the following dose reduction techniques were used: Automated exposure control, adjustment of the mA and kV according to the patien t size, and iterative reconstruction. Unless otherwise specified, incidental findings do not require dedicated imaging follow-up. COMPARISON: No prior exam. FINDINGS: The lack of intravenous contrast limits the sensitivity of this exam for evaluation of solid visceral organs, vascular structures, and retroperitoneum. LOWER CHEST: The visualized lung bases are clear. Trace left pleural fluid. LIVER:Normal in size and contour. No focal lesion. Cholelithiasis. SPLEEN: Normal size. No focal lesion. PANCREAS: No mass, ductal dilation, or shaina-pancreatic fluid. ADRENALS: Normal; no mass. KIDNEYS AND URETERS: Punctate calculus superior pole left kidney. No additional stone or hydronephros is. URINARY BLADDER: Mildly thickened with slight reticulation of the adjacent fat. GASTROINTESTINAL TRACT: No evidence of bowel obstruction, significant free fluid, free air or abscess . There is mild diverticulosis coli of the sigmoid colon without diverticulitis. APPENDIX: Normal appendix. LYMPH NODES: No lymphadenopathy. MUSCULOSKELETAL: Mild multilevel spinal degenerative changes. ADDITIONAL FINDINGS: Small moderate fat-containing ventral hernia. IMPRESSION: Cholelithiasis. Urinary bladder wall thickening may indicate cystitis. Moderate fat-containing umbilical hernia. Punctate left renal calculus without hydronephrosis.
[2024-01-26 21:01] LABS: Absolute Eosinophils 0.2 K/uL (0-0.5); Absolute Lymphocytes (CBC) 0.8 K/uL (0.7-4.9); Absolute Monocytes 0.5 K/uL (0.1-1.3); Absolute Neutrophil 4.8 K/uL (1.8-8.0); Basophils % 0.8 % (0-1.3); Eosinophils % 2.4 % (0-4.4); Hematocrit 29.2 % (39.6-49.0); Hemoglobin 9.5 g/dL (13.6-17.9); Lymphocytes % 12.3 % (15.3-44.8); MCH 29.7 pg (27.0-35.0); MCHC 32.6 g/dL (32.0-36.0); MCV 91.1 fL (80-100); MPV 8.3 fL (7.6-11.3); Monocytes % 8.3 % (3.3-12.3); Neutrophils % 76.2 % (41.7-73.7); Platelets 212 thou/uL (152-406); Red Cell Distribution Width 16.3 % (12.1-15.2)
[2024-01-26 21:16] LABS: Albumin 3.4 g/dL (3.4-5.0); Albumin/Globulin Ratio 0.9 (1.1-1.8); Anion Gap 8.2 mEq/L (5.0-15.0); Bilirubin Total 0.3 mg/dL (0.2-1.0); Globulin 3.7 g/dL (2.3-3.5); Potassium 4.2 mEq/L (3.5-5.1); Protein, Total 7.1 g/dL (6.4-8.2)
[2024-01-26] MEDS ORDERED: CEFTRIAXONE 1000 MG/VIAL ONE (21:39)
[2024-01-26] MEDS ORDERED: NA CHLORIDE 0.9% 500 ML ONE (21:40)
[2024-01-26] MEDS ORDERED: CIPROFLOXACIN HCL 500 MG TAB ONE (23:34)
[2024-01-26] MEDS ORDERED: PHENAZOPYRIDINE 100MG TAB PO ONE (23:35)
[2024-01-26] MEDS ORDERED: CEFDINIR 300 MG CAP PO ONE (23:40)
--- NOTE | 2024-01-26 23:41 | EDPHYS ---
Physician Documentation [facility] Name: Shiraz Kruger Age: 83 yrs Sex: Male : 1940 Arrival Date: 01/26/2024 Time: 19:18 Bed 7 Private MD: ED Physician George Morales HPI: 01/25 23:34 This 83 yrs old Male presents to ER via Wheelchair with complaints of Urinary ritu Problem. 23:34 The patient presents with urinary symptoms, dysuria, urinary frequency. Onset: The ritu symptoms/episode began/occurred 2 day(s) ago. Modifying factors: The symptoms are alleviated by nothing, the symptoms are aggravated by urinating. Associated signs and symptoms: The patient has no apparent associated signs or symptoms. Severity of symptoms: At their worst the symptoms were mild, in the emergency department the symptoms are unchanged. The patient has experienced similar episodes in the past, several times. Historical: - Allergies: 19:36 TAMSULOSIN; cm10 - PMHx: 19:31 Asthma; Diabetes - IDDM; Hypertension; Prostate Cancer; Hypercholesterolemia; cm10 - PSHx: 19:31 Coronary artery bypass graft; cm10 - Immunization history:: Adult Immunizations up to date. - Infectious Disease History:: Denies. - Social history:: Smoking status: Patient/guardian denies using tobacco, the patient reports quitting approximately 35 years ago. ROS: 23:35 Constitutional: Negative for fever, chills, and weight loss, Eyes: Negative for injury, ritu pain, redness, and discharge, ENT: Negative for injury, pain, and discharge, Neck: Negative for injury, pain, and swelling, Cardiovascular: Negative for chest pain, palpitations, and edema, Respiratory: Negative for shortness of breath, cough, wheezing, and pleuritic chest pain, Abdomen/GI: Negative for abdominal pain, nausea, vomiting, diarrhea, and constipation, Back: Negative for injury and pain, MS/Extremity: Negative for injury and deformity, Skin: Negative for injury, rash, and discoloration, Neuro: Negative for headache, weakness, numbness, tingling, and seizure, Psych: Negative for depression, anxiety, suicide ideation, homicidal ideation, and hallucinations, Allergy/Immunology: Negative for hives, rash, and allergies, Endocrine: Negative for neck swelling, polydipsia, polyuria, polyphagia, and marked weight changes, Hematologic/Lymphatic: Negative for swollen nodes, abnormal bleeding, and unusual bruising, 23:35 : Positive for urinary symptoms, urinary frequency, small amounts, hematuria, burning with urination, Exam: 23:35 Constitutional: This is a well developed, well nourished patient who is awake, alert, ritu and in no acute distress. Head/Face: Normocephalic, atraumatic. Eyes: Pupils equal round and reactive to light, extra-ocular motions intact. Lids and lashes normal. Conjunctiva and sclera are non-icteric and not injected. Cornea within normal limits. Periorbital areas with no swelling, redness, or edema. ENT: Nares patent. No nasal discharge, no septal abnormalities noted. Tympanic membranes are normal and external auditory canals are clear. Oropharynx with no redness, swelling, or masses, exudates, or evidence of obstruction, uvula midline. Mucous membranes moist. Neck: Trachea midline, no thyromegaly or masses palpated, and no cervical lymphadenopathy. Supple, full range of motion without nuchal rigidity, or vertebral point tenderness. No Meningismus. Chest/axilla: Normal chest wall appearance and motion. Nontender with no deformity. No lesions are appreciated. Cardiovascular: Regular rate and rhythm with a normal S1 and S2. No gallops, murmurs, or rubs. Normal PMI, no JVD. No pulse deficits. Respiratory: Lungs have equal breath sounds bilaterally, clear to auscultation and percussion. No rales, rhonchi or wheezes noted. No increased work of breathing, no retractions or nasal flaring. Abdomen/GI: Soft, non-tender, with normal bowel sounds. No distension or tympany. No guarding or rebound. No evidence of tenderness throughout. Back: No spinal tenderness. No costovertebral tenderness. Full range of motion. Male : Normal genitalia with no discharge or lesions. Skin: Warm, dry with normal turgor. Normal color with no rashes, no lesions, and no evidence of cellulitis. MS/ Extremity: Pulses equal, no cyanosis. Neurovascular intact. Full, normal range of motion., bilateral aka Neuro: Awake and alert, GCS 15, oriented to person, place, time, and situation. Cranial nerves II-XII grossly intact. Motor strength 5/5 in all extremities. Sensory grossly intact. Cerebellar exam normal. Normal gait. Psych: Awake, alert, with orientation to person, place and time. Behavior, mood, and affect are within normal limits. 23:35 Abdomen/GI: Rectal exam: is unremarkable, Prostate: normal, rectal tone normal, swelling, is not appreciated, tenderness, is not appreciated, fecal impaction, is not appreciated, NO BLOOD, NO MELENA, Vital Signs: 19:31 BP 141 / 54; Pulse 58; Resp 16; Temp 98(TE); Pulse Ox 98% on R/A; Weight 99.79 kg; cm10 Height 5 ft. 10 in. ; Pain 0/10; 22:15 BP 140 / 53; Pulse 62; Resp 17 S; Pulse Ox 97% on R/A; ha1 23:51 BP 134 / 99; Pulse 61; Resp 18; Pulse Ox 99% ; cp4 19:31 Body Mass Index 31.57 (99.79 kg, 177.8 cm) cm10 19:31 Pain Scale: Adult cm10 MDM: 19:37 Medical Screening Exam initiated [facility] 23:37 Differential diagnosis: UTI, urinary retention, prostatitis, urethritis. Data reviewed: [facility] vital signs, nurses notes, lab test result(s), radiologic studies, CT scan. Consideration of Admission/Observation Escalation of care including admission/observation considered. I considered the following discharge prescriptions or medication management in the emergency department Medications were administered in the Emergency Department. See MAR. Independent interpretation of the following test(s) in the Emergency Department CT Scan: My interpretation is CT STONE. Test considered but Not performed: Ultrasound NO ABD USG. Historians other than the Patient: Family Member: SON , WELL INFORMED. Care significantly affected by the following chronic conditions: Diabetes, Hypertension, Obesity, ASTHMA,HIGH CHLESTEROL. 01/25 19:39 Order name: CBC with Diff; Complete Time: 23:20 [facility] 01/25 19:39 Order name: Comprehensive Metabolic Panel; Complete Time: 23:20 [facility] 01/25 19:39 Order name: Urinalysis w/ reflexes; Complete Time: 23:20 [facility] 01/25 19:39 Order name: Urine Culture [facility] 01/25 19:39 Order name: CT Stone Protocol; Complete Time: 23:20 [facility] Administered Medications: 22:05 Drug: NS 0.9% IV 500 ml 500 ml IV at 1 bolus once; to be given as a bolus over 30 ha1 minutes Volume: 500 ml; Route: IV; Rate: 1 bolus; Site: left antecubital; 23:00 Follow up: Response: No adverse reaction; IV Status: Completed infusion cp4 22:05 Drug: Rocephin IV 1 grams IV at per protocol once; Given slow IV push per pharmacy ha1 instructions Route: IV; Rate: per protocol; Site: left antecubital; 22:30 Follow up: Response: No adverse reaction; IV Status: Completed infusion cp4 23:38 Drug: Ciprofloxacin PO 250 mg PO once Route: PO; cp4 23:55 Follow up: Response: No adverse reaction cp4 23:38 Drug: Phenazopyridine PO 200 mg PO once Route: PO; cp4 23:55 Follow up: Response: No adverse reaction cp4 23:41 Drug: Cefdinir PO 300 mg PO once Route: PO; cp4 23:54 Follow up: Response: No adverse reaction cp4 Disposition Summary: 01/26/24 23:40 Discharge Ordered Notes: Location: Home ritu Problem: new ritu Symptoms: have improved ritu Condition: Stable ritu Diagnosis - Chronic kidney disease, unspecified ritu - Anemia, unspecified ritu - Acute cystitis with hematuria ritu - watermaster (current) use of anticoagulants ritu - UTI/ Urinary tract infection, site not specified ritu Followup: ritu - With: Private Physician - When: 2 - 3 days - Reason: Recheck today's complaints, Continuance of care, Re-evaluation by your physician Followup: ritu - With: Nas Real MD - When: 2 - 3 days - Reason: Recheck today's complaints, Re-evaluation by your physician Discharge Instructions: - Discharge Summary Sheet ritu - Anemia ritu - Dysuria ritu - Urinary Tract Infection, Adult ritu - Urinary Tract Infection, Adult, [id number] ritu - Chronic Kidney Disease, Adult, [id number] ritu Forms: - Medication Reconciliation Form ritu - Antibiotic Education ritu - Prescription Opioid Use ritu - Patient Portal Instructions [facility] - Leadership Thank You Letter [facility] Prescriptions: - cefdinir 300 mg Oral capsule - take 1 capsule ORAL route 2 times per day; 20 capsule; Refills: 0, Product ritu Selection Permitted - Cipro 250 mg Oral tablet - take 1 tablet ORAL route every 12 hours; 10 tablet; Refills: 0, Product ritu Selection Permitted - Pyridium 200 mg Oral Tablet - take 1 tablet ORAL route every 8 hours for 3 days; 9 tablet; Refills: 0, ritu Product Selection Permitted Signatures: Dispatcher [employer] George Almaraz MD MD cha Ayala, Heidy RN RN ha1 Yamile Fuentes RN RN cm10 Dolly Payne 4 Corrections: (The following items were deleted from the chart) 19:36 19:31 Allergies: No Known Allergies; 10 10
--- NOTE | 2024-01-26 23:41 | ER ---
Nurse's Notes [facility] Name: Shiraz Kruger Age: 83 yrs Sex: Male : 1940 Arrival Date: 01/26/2024 Time: 19:18 Bed 7 Private MD: Diagnosis: Chronic kidney disease, unspecified;Anemia, unspecified;Acute cystitis with hematuria;shelter (current) use of anticoagulants;UTI/ Urinary tract infection, site not specified Presentation: 01/25 19:31 Chief complaint: Patient states: BURNING WITH URINATION THAT HAS BEEN INTERMITTENT FOR cm10 1 WEEK. NO OTHER SYMPTOMS. Coronavirus screen: Client denies travel out of the [place] in the last 14 days. Ebola Screen: Patient denies travel to an Ebola-affected area in the 21 days before illness onset. No symptoms or risks identified at this time. Initial Sepsis Screen: Does the patient meet any 2 criteria? No. Patient's initial sepsis screen is negative. Does the patient have a suspected source of infection? No. Patient's initial sepsis screen is negative. Risk Assessment: Do you want to hurt yourself or someone else? Patient reports no desire to harm self or others. Onset of symptoms was January 26, 2024. 19:31 Method Of Arrival: Wheelchair cm10 19:31 Acuity: MALIK 3 cm10 Triage Assessment: 19:33 General: Appears in no apparent distress. comfortable, Behavior is calm, cooperative. cm10 Neuro: No deficits noted. Level of Consciousness is awake, alert, obeys commands, Oriented to person, place, time, situation, Appropriate for age. Respiratory: No deficits noted. Airway is patent Respiratory effort is even, unlabored, Respiratory pattern is regular, symmetrical. Historical: - Allergies: 19:36 TAMSULOSIN; cm10 - PMHx: 19:31 Asthma; Diabetes - IDDM; Hypertension; Prostate Cancer; Hypercholesterolemia; cm10 - PSHx: 19:31 Coronary artery bypass graft; cm10 - Immunization history:: Adult Immunizations up to date. - Infectious Disease History:: Denies. - Social history:: Smoking status: Patient/guardian denies using tobacco, the patient reports quitting approximately 35 years ago. Screenin:47 [facility] ED Fall Risk Assessment (Adult) History of falling in the last 3 months, cp4 including since admission No falls in past 3 months (0 pts) Confusion or Disorientation No (0 pts) Intoxicated or Sedated No (0 pts) Impaired Gait No (0 pts) Mobility Assist Device Used No (0 pt) Altered Elimination No (0 pt) Score/Fall Risk Level 0 - 2 = Low Risk Oriented to surroundings, Maintained a safe environment, Assessed \T\ reinforced patient's understanding of fall precautions, Hourly rounding (assess needs \T\ fall precautionary measures) done. Abuse screen: Denies threats or abuse. Nutritional screening: No deficits noted. Tuberculosis screening: No symptoms or risk factors identified. Assessment: 21:47 General: Appears in no apparent distress. uncomfortable, Behavior is calm, cooperative, cp4 appropriate for age. Pain: Denies pain. Neuro: Level of Consciousness is awake, alert, obeys commands, Oriented to person, place, time, situation. Cardiovascular: Patient's skin is warm and dry. Respiratory: Airway is patent Respiratory effort is even, unlabored. GI: No signs and/or symptoms were reported involving the gastrointestinal system. : Reports burning with urination, since one week. EENT: No signs and/or symptoms were reported regarding the EENT system. Derm: No signs and/or symptoms reported regarding the dermatologic system. Musculoskeletal: No signs and/or symptoms reported regarding the musculoskeletal system. 22:15 Reassessment: Patient and/or family updated on plan of care and expected duration. Pain ha1 level reassessed. Patient is alert, oriented x 3, equal unlabored respirations, skin warm/dry/pink. Patient denies pain at this time. Vital Signs: 19:31 BP 141 / 54; Pulse 58; Resp 16; Temp 98(TE); Pulse Ox 98% on R/A; Weight 99.79 kg; cm10 Height 5 ft. 10 in. ; Pain 0/10; 22:15 BP 140 / 53; Pulse 62; Resp 17 S; Pulse Ox 97% on R/A; ha1 23:51 BP 134 / 99; Pulse 61; Resp 18; Pulse Ox 99% ; cp4 19:31 Body Mass Index 31.57 (99.79 kg, 177.8 cm) cm10 19:31 Pain Scale: Adult cm10 ED Course: 19:21 Patient arrived in ED. ra3 19:31 Triage completed. cm10 19:33 Arm band placed on right wrist. Patient placed in waiting room. cm10 19:36 George Morales MD is Attending Physician. [facility] 19:50 Urine collected: clean catch specimen, cloudy. cm10 20:38 CT Stone Protocol In Process Unspecified. EDMS 20:55 Inserted saline lock: 20 gauge in left antecubital area, using aseptic technique. Blood af3 collected. Flushed with 10 mL NS. 21:24 Megan Mc, RN is Primary Nurse. ha1 21:47 Bed in low position. Call light in reach. Side rails up X 1. cp4 21:47 No provider procedures requiring assistance completed. cp4 23:39 Nas Real MD is Referral Physician. [facility] 23:52 Provided Education on: UTI. cp4 23:52 intact, bleeding controlled, No redness/swelling at site. Pressure dressing applied. cp4 Administered Medications: 22:05 Drug: NS 0.9% IV 500 ml 500 ml IV at 1 bolus once; to be given as a bolus over 30 ha1 minutes Volume: 500 ml; Route: IV; Rate: 1 bolus; Site: left antecubital; 23:00 Follow up: Response: No adverse reaction; IV Status: Completed infusion cp4 22:05 Drug: Rocephin IV 1 grams IV at per protocol once; Given slow IV push per pharmacy ha1 instructions Route: IV; Rate: per protocol; Site: left antecubital; 22:30 Follow up: Response: No adverse reaction; IV Status: Completed infusion cp4 23:38 Drug: Ciprofloxacin PO 250 mg PO once Route: PO; cp4 23:55 Follow up: Response: No adverse reaction cp4 23:38 Drug: Phenazopyridine PO 200 mg PO once Route: PO; cp4 23:55 Follow up: Response: No adverse reaction cp4 23:41 Drug: Cefdinir PO 300 mg PO once Route: PO; cp4 23:54 Follow up: Response: No adverse reaction cp4 Medication: 21:47 VIS not applicable for this client. cp4 Outcome: 23:40 Discharge ordered [address] . [facility] 23:52 Discharged to home ambulatory, cp4 23:52 Condition: stable 23:52 Discharge instructions given to patient, family, Instructed on discharge instructions, follow up and referral plans. medication usage, Demonstrated understanding of instructions, follow-up care, medications, Prescriptions given X 3, 23:55 Patient left the ED. cp4 Addendum: 01/30/2024 07:46 Addendum: Culture Results: Positive urine culture. No further action required. Bacteria i w sensitive to prescribed antibiotic. Signatures: Dispatcher [employer] EDMS George Morales MD MD cha Williams, Irene RN JUDY iw Megan Mc RN RN ha1 Yamile Fuentes RN RN cm10 Dolly Payne cp4 Sanjana Zuniga ra3 Anne-Marie Anand Corrections: (The following items were deleted from the chart) 01/25 19:36 19:31 Allergies: No Known Allergies; cm10 cm10
[2024-01-27 00:22] VITALS: TEMP 98
[2024-01-27 00:27] VITALS: BP 134/99; O2SAT 99
== END 2024-01-26 23:55 | disposition home or self-care (01) ==
LOC: ER 19:18
DX: N30.01 Acute cystitis with hematuria (principal); E11.22 Type 2 diabetes mellitus with diabetic chronic kidney disease; I12.9 Hypertensive chronic kidney disease with stage 1 through stage 4 chronic kidney disease, or unspecified chronic kidney disease; N18.9 Chronic kidney disease, unspecified; D64.9 Anemia, unspecified; Z79.01 Long term (current) use of anticoagulants; Z95.1 Presence of aortocoronary bypass graft
CPT/HCPCS: 96365; 87088; 85025; 81001; 87086; 36415; 87077; 87186; 80053; 76377; 74176; 99284; J7040; J0696

== ENCOUNTER 2024-04-17 14:42 | Emergency (ER) | payer OTHER ==
[2024-04-17] MEDS ORDERED: PHENAZOPYRIDINE 100MG TAB PO ONE (14:54)
[2024-04-17 15:09] LABS: Sqamous Epithelial None Seen /HPF (None Seen); Urine Bacteria <20 /HPF (<20); Urine Bilirubin NEGATIVE (Negative); Urine Blood 3+ (Negative); Urine Clarity Extremely Turbid (Clear); Urine Color Light-Yellow (Yellow); Urine Crystals Unidentified Few /HPF (None Seen); Urine Culture Reflex Order REFLEXED; Urine Glucose 3+ (Negative); Urine Ketones NEGATIVE (Negative); Urine Micro Reflex YN NO BILL MICROSCOPIC; Urine Nitrite NEGATIVE (Negative); Urine Protein 1+ (Negative); Urine RBC >50 /HPF (None Seen); Urine Urobilinogen Normal (Normal); Urine WBC >50 /HPF (<5); Urine WBC Clump Rare /HPF (None Seen); Urine Yeast (Budding) Few /HPF (None Seen); Urine pH 5.5 (5.0-7.0)
--- NOTE | 2024-04-17 15:18 | EDPHYS ---
Physician Documentation [facility] Name: Shiraz Kruger Age: 83 yrs Sex: Male : 1940 Arrival Date: 04/17/2024 Time: 14:42 Bed 24 Private MD: ED Physician George Morales HPI: 04/17 14:44 This 83 yrs old Male presents to ER via Unassigned with complaints of Urinary Problem. sb4 14:44 dysuria and hematuria x 2 days. + history of UTIs. no abdominal pain, flank pain, sb4 fever, chills, nausea, or vomiting. no history of kidney stones. Historical: - Allergies: 14:48 tamsulosin; me1 - PMHx: 14:48 Asthma; Diabetes - IDDM; Hypercholesterolemia; Hypertension; Prostate Cancer; me1 - PSHx: 14:48 Coronary artery bypass graft; me1 - Immunization history:: Adult Immunizations up to date. - Infectious Disease History:: Denies. - Social history:: Smoking status: Patient/guardian denies using tobacco, but has a distant history of tobacco abuse. ROS: 14:44 Constitutional: Negative for fever, chills, and weight loss, sb4 14:44 : Positive for urinary symptoms, hematuria, burning with urination, 14:44 All other systems are negative, Exam: 14:44 Constitutional: This is a well developed, well nourished patient who is awake, alert, sb4 and in no acute distress. Head/Face: Normocephalic, atraumatic. Eyes: Extra-ocular motions intact. Periorbital areas with no swelling, redness, or edema. ENT: Mucous membranes moist. Cardiovascular: Regular rate and rhythm with a normal S1 and S2. Respiratory: No increased work of breathing, no retractions or nasal flaring. Abdomen/GI: Soft, non-tender, no distension. Skin: Warm, dry with normal turgor. Normal color with no rashes, no lesions, and no evidence of cellulitis. Vital Signs: 14:44 BP 179 / 57; Pulse 60; Resp 17; Temp 98; Pulse Ox 100% ; Weight 89.36 kg; Height 5 ft. me1 11 in. ; Pain 4/10; 15:41 BP 143 / 62; Pulse 56; Resp 18; Temp 98.5; Pulse Ox 99% ; me1 14:44 Body Mass Index 27.48 (89.36 kg, 180.34 cm) me1 14:44 Pain Scale: Adult me1 MDM: 14:44 Medical Screening Exam initiated sb4 14:46 External Records Reviewed: Outpatient labs: urine culture from 01/26/2024 grew sb4 klebsiella with resistance to ampillicin and indeterminate to macrobid. 15:16 Data reviewed: vital signs, nurses notes, EMS record, lab test result(s), and as a sb4 result, I will discharge patient. Counseling: I had a detailed discussion with the patient and/or guardian regarding the historical points, exam findings, and any diagnostic results supporting the discharge/admit diagnosis, the presence of at least one elevated blood pressure reading (>120/80) during this emergency department visit, lab results, the need for outpatient follow up, for definitive care, to return to the emergency department if symptoms worsen or persist or if there are any questions or concerns that arise at home. 04/17 14:44 Order name: [facility]; Complete Time: 15:16 sb4 04/17 14:44 Order name: Urine Culture sb4 Administered Medications: 14:58 Drug: Phenazopyridine PO 100 mg PO once Route: PO; me1 15:26 Follow up: Response: No adverse reaction; Pain is decreased me1 15:36 Drug: Rocephin (cefTRIAXone) IM 1 grams IM once Route: IM; Site: right deltoid; me1 15:42 Follow up: Response: No adverse reaction me1 15:36 Drug: Fluconazole PO 200 mg PO once Route: PO; me1 15:41 Follow up: Response: No adverse reaction me1 Disposition Summary: 04/17/24 15:17 Discharge Ordered Notes: Location: Home sb4 Problem: new sb4 Symptoms: have improved sb4 Condition: Stable sb4 Diagnosis - UTI/ Urinary tract infection, site not specified sb4 Followup: sb4 - With: Emergency Department - When: As needed - Reason: Fever > 102 F, Worsening of condition Discharge Instructions: - Discharge Summary Sheet sb4 - Urinary Tract Infection, Adult, [id number] sb4 Forms: - Antibiotic Education sb4 - Patient Portal Instructions sb4 - Leadership Thank You Letter sb4 Prescriptions: - Pyridium 200 mg Oral Tablet - take 1 tablet ORAL route every 8 hours for 3 days; 9 tablet; Refills: 0, sb4 Product Selection Permitted - cefpodoxime 100 mg Oral Tablet - take 1 tablet ORAL route every 12 hours for 10 days take with food; 20 tablet; sb4 Refills: 0, Product Selection Permitted Signatures: Dispatcher [employer] Mary Matta PA-C [employer] sb4 Brie Olivarez, RN RN me1
--- NOTE | 2024-04-17 15:18 | ER ---
Nurse's Notes [facility] Name: Shiraz Kruger Age: 83 yrs Sex: Male : 1940 Arrival Date: 04/17/2024 Time: 14:42 Bed 24 Private MD: Diagnosis: UTI/ Urinary tract infection, site not specified Presentation: 04/17 14:44 Chief complaint: EMS states: toned out for bloody urine, burning with urination and me1 urinary frequency since yesterday. BGL 338. Coronavirus screen: Vaccine status: Patient reports being unvaccinated. Ebola Screen: No symptoms or risks identified at this time. Initial Sepsis Screen: Does the patient meet any 2 criteria? No. Patient's initial sepsis screen is negative. Does the patient have a suspected source of infection? No. Patient's initial sepsis screen is negative. Risk Assessment: Do you want to hurt yourself or someone else? Patient reports no desire to harm self or others. Onset of symptoms was April 16, 2024. 14:44 Method Of Arrival: [place] [facility] [place] Acuity: MALIK 3 me1 Triage Assessment: 14:48 General: Appears uncomfortable, well groomed, well developed, well nourished, Behavior me1 is calm, cooperative, appropriate for age, Reports burning with urination, urinary frequency and hematuria since yesterday. Pain: Complains of pain in suprapubic area Pain does not radiate. Pain currently is 2 out of 10 on a pain scale. at worst was 5 out of 10 on a pain scale. Quality of pain is described as burning, Pain began suddenly, Is episodic, Aggravated by urination. EENT: No signs and/or symptoms were reported regarding the EENT system. Neuro: Level of Consciousness is awake, alert, obeys commands, Oriented to person, place, time, situation, Appropriate for age. Cardiovascular: Patient's skin is warm and dry. Respiratory: Airway is patent Respiratory effort is even, unlabored, Respiratory pattern is regular, symmetrical. GI: No signs and/or symptoms were reported involving the gastrointestinal system. : Urine is cloudy, blood tinged, Reports burning with urination, urinary frequency, bloody urine. Derm: Skin is intact, is healthy with good turgor, Skin is pink, warm \T\ dry. Musculoskeletal: No signs and/or symptoms reported regarding the musculoskeletal system. Historical: - Allergies: 14:48 tamsulosin; me1 - PMHx: 14:48 Asthma; Diabetes - IDDM; Hypercholesterolemia; Hypertension; Prostate Cancer; me1 - PSHx: 14:48 Coronary artery bypass graft; me1 - Immunization history:: Adult Immunizations up to date. - Infectious Disease History:: Denies. - Social history:: Smoking status: Patient/guardian denies using tobacco, but has a distant history of tobacco abuse. Screenin:51 [facility] ED Fall Risk Assessment (Adult) History of falling in the last 3 months, me1 including since admission No falls in past 3 months (0 pts) Confusion or Disorientation No (0 pts) Intoxicated or Sedated No (0 pts) Impaired Gait No (0 pts) Mobility Assist Device Used No (0 pt) Altered Elimination No (0 pt) Score/Fall Risk Level 0 - 2 = Low Risk Maintained a safe environment, Provided non-skid footwear, Hourly rounding (assess needs \T\ fall precautionary measures) done. Abuse screen: Denies threats or abuse. Nutritional screening: No deficits noted. Tuberculosis screening: No symptoms or risk factors identified. Assessment: 14:51 General: See triage assessment.. me1 Vital Signs: 14:44 BP 179 / 57; Pulse 60; Resp 17; Temp 98; Pulse Ox 100% ; Weight 89.36 kg; Height 5 ft. me1 11 in. ; Pain 4/10; 15:41 BP 143 / 62; Pulse 56; Resp 18; Temp 98.5; Pulse Ox 99% ; me1 14:44 Body Mass Index 27.48 (89.36 kg, 180.34 cm) me1 14:44 Pain Scale: Adult me1 ED Course: 14:44 Patient arrived in ED. me1 14:44 Mary Richards PA-C is PHCP. sb4 14:44 George Morales MD is Attending Physician. sb4 14:48 Triage completed. me1 14:48 Arm band placed on Patient placed in an exam room. me1 14:51 Patient has correct armband on for positive identification. Bed in low position. [place] [facility] [place]. Side rails up X 1. Provided Education on: POC. Verbalized understanding.. Client placed on continuous cardiac and pulse oximetry monitoring. NIBP monitoring applied. Pulse ox on. NIBP on. 14:51 No provider procedures requiring assistance completed. me1 14:58 Urine Culture Sent. me1 14:58 UAM Sent. me1 15:03 Brie Olivarez, RN is Primary Nurse. me1 16:00 Patient did not have IV access during this emergency room visit. me1 Administered Medications: 14:58 Drug: Phenazopyridine PO 100 mg PO once Route: PO; me1 15:26 Follow up: Response: No adverse reaction; Pain is decreased me1 15:36 Drug: Rocephin (cefTRIAXone) IM 1 grams IM once Route: IM; Site: right deltoid; me1 15:42 Follow up: Response: No adverse reaction me1 15:36 Drug: Fluconazole PO 200 mg PO once Route: PO; me1 15:41 Follow up: Response: No adverse reaction me1 Medication: 14:51 VIS not applicable for this client. me1 Outcome: 15:17 Discharge ordered by . hang 16:00 Discharged to home via wheelchair, with family, me1 16:00 Condition: stable 16:00 Discharge instructions given to patient, family, Instructed on discharge instructions, follow up and referral plans. medication usage, Demonstrated understanding of instructions, follow-up care, medications, Prescriptions given X 2, 16:01 Patient left the ED. me1 Signatures: Mary Richards, PA-C PA-C sb4 Brie Olivarez, RN RN me1 Corrections: (The following items were deleted from the chart) 16:01 16:00 IV discontinued, intact, bleeding controlled, No redness/swelling at site. me1 Pressure dressing applied, me1
[2024-04-17] MEDS ORDERED: FLUCONAZOLE 100 MG TAB ONE (15:28)
[2024-04-17] MEDS ORDERED: CEFTRIAXONE 1000 MG/VIAL ONE (15:28)
[2024-04-17] MEDS ORDERED: LIDOCAINE 1% MPF 2 ML AMPULE ONE (15:29)
[2024-04-17 16:14] VITALS: BP 143/62; TEMP 98.5; O2SAT 99
== END 2024-04-17 16:01 | disposition home or self-care (01) ==
LOC: ER 14:42
DX: N39.0 Urinary tract infection, site not specified (principal); Z95.1 Presence of aortocoronary bypass graft
CPT/HCPCS: 87088; 81001; 87086; 87077; 87186; 96372; 99284; J0696